=== PATIENT | female | born 1960 | race Caucasian/White ===

== ENCOUNTER 2022-08-17 07:03 | Emergency (ER) | payer BC ==
[2022-08-17] MEDS ORDERED: KETOROLAC 15 MG/ML VIAL IVP STA (07:25)
--- NOTE | 2022-08-17 07:28 | ED Physician Documentation ---
PD HPI ABD PAIN - Stated complaint Stated Complaint: RIB/BACK PX - Chief complaint Chief Complaint: Abd Pain - History obtained from History obtained from: Patient - Additional information Additional information: 62-year-old woman who is relatively healthy, no history of abdominal surgeries or cardiac disease presents with epigastric pain radiating to the back starting last evening. She had it briefly after lunch yesterday, but then it came on again after dinner. She is unable to get comfortable and has thrown up a few times but thinks it is from the pain as opposed to nausea per se. No changes in her bowel movements. This is nothing she is ever had before. She is not short of breath. Review of Systems Constitutional: denies: Fever, Chills Cardiac: reports: Chest pain / pressure. denies: Palpitations Respiratory: denies: Dyspnea, Cough GI: reports: Abdominal Pain, Nausea. denies: Vomiting PD PAST MEDICAL HISTORY - Past Medical History Cardiovascular: None Respiratory: None Neuro: None Endocrine/Autoimmune: None Musculoskeletal: Other - Past Surgical History Past Surgical History: Yes - Present Medications Home Medications: Ambulatory Orders Medication Instructions Recorded Confirmed HYDROcod/ACETAM 5/325 [[place] 5/325] 1 - 2 tab PO Q6H PRN #15 tablet 08/17/22 - Allergies Allergies/Adverse Reactions: Allergies Allergy/AdvReac Type Severity Reaction Status Date / Time omeprazole Allergy Rash Verified 08/17/22 07:20 oxycodone [From Percocet] Allergy Itching Verified 08/17/22 07:20 hydrocodone AdvReac Unknown Verified 08/17/22 07:20 - Social History Does the pt smoke?: No Smoking Status: Never smoker Does the pt drink ETOH?: No Does the pt have substance abuse?: No - Immunizations Immunizations are current?: No Immunizations: TDAP >10years/unknown - POLST Patient has POLST: No PD ED PE NORMAL - Vitals Vital signs reviewed: Yes - General General: Alert and oriented X 3, No acute distress - HEENT HEENT: PERRL, EOMI - Neck Neck: Supple, no meningeal sign, No bony TTP - Cardiac Cardiac: RRR, No murmur - Respiratory Respiratory: No respiratory distress, Clear bilaterally - Abdomen Abdomen: Normal bowel sounds, Soft, Other (TTP epigastric / RUQ with + sam's) - Back Back: No CVA TTP, No spinal TTP - Derm Derm: Normal color, Warm and dry - Extremities Extremities: No edema, No calf tenderness / cord - Neuro Neuro: Alert and oriented X 3, Normal speech Eye Opening: Spontaneous Motor: Obeys Commands Verbal: Oriented GCS Score: 15 - Psych Psych: Normal mood, Normal affect Results - Vitals Vitals: Vital Signs - 24 hr 08/17/22 08/17/22 07:15 07:37 Temperature 36.3 C L Heart Rate 92 79 Respiratory 20 12 Rate Blood Pressure 157/100 H O2 Saturation 97 96 Oxygen O2 Source Room air - EKG (time done) 0728 Rate: Rate (enter#) (80) Rhythm: NSR [place]: Normal Intervals: Normal DC QRS: Normal Ischemia: Normal ST segments - Labs Labs: Laboratory Tests 08/17/22 08/17/22 08/17/22 07:33 07:33 07:33 WBC 11.6 H RBC 5.37 Hgb 16.4 H Hct 48.1 H MCV 89.6 MCH 30.5 MCHC 34.1 RDW 12.1 Plt Count 239 MPV 9.1 Neut # (Auto) 9.3 H Lymph # (Auto) 1.4 L Stark # (Auto) 0.8 Eos # (Auto) 0.0 Baso # (Auto) 0.0 Absolute Nucleated RBC 0.00 Nucleated RBC % 0.0 Sodium 135 Potassium 4.1 Chloride 99 L Carbon Dioxide 25 Anion Gap 11.0 BUN 13 Creatinine 0.7 Estimated GFR (MDRD) 85 L Glucose 224 H Calcium 9.4 Total Bilirubin 1.1 H AST 26 ALT 27 Alkaline Phosphatase 108 Troponin I High Sens 5.4 Total Protein 7.7 Albumin 4.3 Globulin 3.4 Albumin/Globulin Ratio 1.3 Lipase 31 PD Medical Decision Making - ED course Reviewed Lab Results: CBC reviewed and notable for mild leukocytosis with white count of 11.6, also elevated hemoglobin at 16.4 without prior values to compare it with, question hemoconcentration. CMP reviewed and notable for minimal elevation in bilirubin at 1.1 without other evidence of hepatic inflammation or cholestasis. Blood glucose 224, also no priors for comparison.. Troponin reviewed and normal. Given that, the atypical nature of the pain, and the time course with pain of about 12 hours duration at that juncture I believe this rules out ACS. ED course: 62-year-old woman with epigastric pain radiating to the back with tenderness in the epigastrium and right upper quadrant. Most likely diagnosis would be biliary colic/cholecystitis. Differential includes ACS, AAA, pneumothorax, other intra-abdominal emergencies, Pancreatitis, Gastritis/ulcer disease. Will work-up initially with EKG and cardiac enzymes, also right upper quadrant ultrasound, will broaden work-up if no clear diagnosis is identified. Ultrasound is a bit limited related to body habitus, but I viewed images independently and discussed it with the ticket taker ferryboat. She does have gallstones, but no biliary ductal dilation, and no evidence of cholecystitis such as wall thickening or pericholecystic fluid. After the administration of 15 mg of IV Toradol her pain was much better and she was nontender on repeat evaluations around 8:25 AM prior to discharge. Discussed likely diagnosis of biliary colic without cholecystitis and need for follow-up with surgery as well as dietary limitations in the interim to prevent flares. She was hesitant to take narcotic analgesia but was wanting a prescription just in case which was prescribed at the pharmacy. Departure - Departure Disposition: 01 Home, Self Care Clinical Impression: Biliary colic Condition: Good Record reviewed to determine appropriate education?: Yes Instructions: ED Gallstone W Biliary Colic Follow-Up: Surgical Care [Provider Group] Prescriptions: HYDROcod/ACETAM 5/325 [[place] 5/325] 1 - 2 tab PO Q6H PRN #15 tablet PRN Reason: Pain Comments: I sent the prescription electronically to the [facility] pharmacy here in [place]. As discussed, you need to follow-up with surgeon, call the office tomorrow for next available appointment. In the interim maintain a very light diet with limitations in both fat and protein. Minimize meats, cheese, cream and butter. Whole grains, fruits and vegetables are fine. Return for new or worsening symptoms or if pain is uncontrolled, or if you run a fever or become jaundiced (yellow eyes or skin). I am prescribing a short course of narcotic pain medication for you. These are potentially dangerous and addictive medications that should be used carefully. These medications may constipate you. Take an [id number]-[id number] stool softener (docusate) twice daily with plenty of water while taking these medications. If you go 24 hours without a bowel movement, take wxkt-tsy-eomtuaa miralax, per package instructions. Do not drink or drive while taking these medications. If you received narcotic or sedating medications while in the emergency department, do not drive for 24 hours. Store this medication in a safe, secure place and out of reach of children. It is a violation of federal law to give or sell this medication to another person or to use in a manner other than prescribed. The ED will not refill narcotic prescriptions, including prescriptions lost or stolen. To dispose of unwanted medications: 1. [facility] at [address] in [place] has a medication drop box. They accept prescription medications (in p ill form) Wednesday through Wednesday 9:00 a.m. to 5:00 p.m. 2. The [facility] [employer] accepts prescription medications (in pill form only) for disposal year round. Call for more information. 3. Contact the [facility] for the next [facility] sponsored prescription drug collection event. , [phone], or [phone]; Note that many narcotic pain relievers also contain Tylenol/acetaminophen. Please ensure that your total dose of acetaminophen from all sources does not exceed 3 g (3000 mg) per day.
[2022-08-17 07:42] LABS: BASOPHILS % (AUTO) 0.3 %; EOSINOPHILS % (AUTO) 0.2 %; HCT - HEMATOCRIT 48.1 % (37.0-47.0); HGB - HEMOGLOBIN 16.4 g/dL (12.0-16.0); LYMPHOCYTES # (AUTO) 1.4 10^3/uL (1.5-3.5); LYMPHOCYTES % (AUTO) 11.7 %; MEAN CORPUSCULAR HEMOGLOBIN 30.5 pg (27.0-31.0); MEAN CORPUSCULAR HGB CONC 34.1 g/dL (32.0-36.0); MEAN CORPUSCULAR VOLUME 89.6 fL (81.0-99.0); MEAN PLATELET VOLUME 9.1 fL (7.9-10.8); MONOCYTES # (AUTO) 0.8 10^3/uL (0.0-1.0); MONOCYTES % (AUTO) 6.9 %; NEUTROPHILS # (AUTO) 9.3 10^3/uL (1.5-6.6); NEUTROPHILS % (AUTO) 80.6 %; PLT - PLATELET COUNT 239 10^3/uL (130-450); RED BLOOD COUNT 5.37 10^6/uL (4.20-5.40); RED CELL DISTRIBUTION WIDTH 12.1 % (12.0-15.0); WHITE BLOOD COUNT 11.6 x10^3/uL (4.8-10.8)
[2022-08-17 07:58] LABS: ALBUMIN 4.3 g/dL (3.2-5.5); ALBUMIN/GLOBULIN RATIO 1.3 (1.0-2.2); BILIRUBIN,TOTAL 1.1 mg/dL (0.2-1.0); CALCIUM 9.4 mg/dL (8.5-10.3); CREATININE 0.7 mg/dL (0.4-1.0); POTASSIUM 4.1 mmol/L (3.5-5.0); TOTAL PROTEIN 7.7 g/dL (6.7-8.2)
[2022-08-17 08:48] VITALS: BP 151/83
--- NOTE | 2022-08-17 08:49 | XRAY Report ---
PROCEDURE: Chest 1 View X-Ray INDICATIONS: Chest Pain TECHNIQUE: One view of the chest was acquired. COMPARISON: None. FINDINGS: Surgical changes and devices: None. Lungs and pleura: No pleural effusions or pneumothorax. Lungs are clear. Mediastinum: Mediastinal contours appear normal. Heart size is normal. Bones and chest wall: No suspicious bony lesions. Overlying soft tissues appear unremarkable. IMPRESSION: No acute cardiopulmonary disease. Reviewed by: Alysha Preciado MD on 08/17/2022 8:47 AM [facility] Approved by: Alysha Preciado MD on 08/17/2022 8:47 AM [facility] Station ID: [id number]
--- NOTE | 2022-08-17 08:55 | Ultrasound Report ---
PROCEDURE: Abdomen Limited INDICATIONS: Epigastric/right upper quadrant pain TECHNIQUE: Real-time focused scanning was performed of the abdomen, with image documentation. COMPARISON: None. FINDINGS: Liver: Liver is normal in size and demonstrates diffusely increased echotexture. Gallbladder: Mildly distended. There are small gallstones and coronary sinus. The gallbladder wall th ickness is normal. No pericholecystic fluid collection or no sonographic Pearce sign. Biliary ducts: Intrahepatic bile ducts are non-dilated. Extrahepatic bile duct caliber measures 5.4 mm. Normal is 6-7 mm or less in diameter, or 10 mm or less post-cholecystectomy. Pancreas: Visualized portions of the pancreas are sonographically normal. Right Kidney: Right kidney measures 11.5 cm long. No hydronephrosis or nephrolithiasis. No solid m asses. Miscellaneous: No free abdominal fluid. IMPRESSION: 1. Cholelithiasis. No ultrasound findings to suggest acute cholecystitis. 2. Diffusely increased hepatic echotexture consistent with fatty infiltration. Other hepatocellular d isease could have a similar ultrasound appearance. Please correlate results LFTs. Reviewed by: Alysha Preciado MD on 08/17/2022 8:54 AM PST Approved by: Alysha Preciado MD on 08/17/2022 8:54 AM PST Station ID: [id number]
== END 2022-08-17 08:47 | disposition home or self-care (01) ==
LOC: ED 07:03
DX: K80.50 Calculus of bile duct without cholangitis or cholecystitis without obstruction (principal)
CPT/HCPCS: 36415; 80053; 83690; 84484; 85025; 93005; 96374; 99284

== ENCOUNTER 2022-09-07 10:23 | Day surgery (SDC) | payer BC ==
[~2022-09-07 10:23] MED LIST: ACETAMINOPHEN 500 MG TABLET PO ONE; CELECOXIB 100 MG CAPSULE PO ONE; metroNIDAZOLE 500 MG/100 ML 500 MG/100 ML BAG ONE
[2022-09-07] MEDS ORDERED: LACTATED RINGERS 1,000 ML IV ONE (10:35)
[2022-09-07] MEDS ORDERED: PROPOFOL 200 MG/20 ML VIAL IVP ONE (10:55)
[2022-09-07] MEDS ORDERED: fentaNYL 100 MCG/2 ML VIAL ONE ×2 (10:56→15:19)
[2022-09-07] MEDS ORDERED: ONDANSETRON 4 MG/2 ML VIAL ONE (10:56)
[2022-09-07] MEDS ORDERED: DEXAMETHASONE 4 MG/ML VIAL ONE (10:56)
[2022-09-07] MEDS ORDERED: MIDAZOLAM 2 MG/2 ML VIAL ONE (10:56)
[2022-09-07] MEDS ORDERED: ROCURONIUM 50 MG/5 ML VIAL ONE ×2 (10:56→12:54)
[2022-09-07] MEDS ORDERED: BUPIVACAINE 0.5% PF 30 ML VIAL ONE (11:00)
[2022-09-07] MEDS ORDERED: LIDOCAINE MPF 2%-EPI 1:200000 20 ML VIAL ONE (11:00)
[2022-09-07] MEDS ORDERED: iohexoL-240 10 ML VIAL IVP ONE ×2 (11:04→11:07)
--- NOTE | 2022-09-07 11:11 | ANESTHESIA ---
Pre-Anesthesia VS, & Labs - Diagnosis cholilithiasis - Procedure lap kayce with cholangiogram Vital Signs: Temp Pulse Resp BP Pulse Ox O2 Flow Rate 36.1 C L 65 16 127/71 96 0 09/07/22 10:35 09/07/22 10:35 09/07/22 10:35 09/07/22 10:35 09/07/22 10:35 09/07/22 10:35 Height: 5 ft 4 in Weight (kg): 116.6 kg Body Mass Index: 44.1 BMI Classification: Morbidly Obese - NPO >8 hours - Is Patient ?: No Home Medications and Allergies Home Medications: Ambulatory Orders Acetaminophen [Tylenol] 650 mg PO Q6H PRN 08/28/22 Cimetidine [Acid Sleeve Setter Safety Stitch] 200 mg PO DAILY 08/28/22 Famotidine [Pepcid AC] 10 mg PO DAILY PRN 08/28/22 Ibuprofen [Motrin] 600 mg PO Q6H PRN 08/28/22 Acetaminophen [Tylenol] 650 mg PO Q6H PRN 08/28/22 Cimetidine [Acid Sleeve Setter Safety Stitch] 200 mg PO DAILY 08/28/22 Famotidine [Pepcid AC] 10 mg PO DAILY PRN 08/28/22 Ibuprofen [Motrin] 600 mg PO Q6H PRN 08/28/22 Allergies/Adverse Reactions: Allergies Allergy/AdvReac Type Severity Reaction Status Date / Time omeprazole Allergy Rash Verified 09/07/22 08:34 oxycodone [From Percocet] Allergy Rash Verified 09/07/22 08:34 hydrocodone AdvReac Nausea Verified 09/07/22 08:34 Anes History & Medical History - Anesthetic History Anesthesia Complications: reports: No previous complications - Medical History Cardiovascular: reports: None Pulmonary: reports: None Gastrointestinal: reports: GERD, Cholelithiasis Urinary: reports: None Neuro: reports: None Musculoskeletal: reports: Osteoarthritis Endocrine/Autoimmune: reports: None Skin: reports: None Smoking Status: Never smoker History of Cancer?: No - Surgical History Orthopedic: reports: Hip replacement, Knee replacement, Carpal Tunnel surgery, Other Exam General: Alert, Oriented x3 Dental: WNL Mouth Opening: Greater than 4 Fingerbreadths Neck Mobility: Normal Mallampati classification: II Thyromental Distance: greater than 6 cm Respiratory: Lungs clear Cardiovascular: Regular rate, Normal S1, Normal S2 Plan Anesthesia Type: General Consent for Procedure(s) Verified and Reviewed: Yes Code Status: Attempt Resuscitation ASA classification: 2-Mild systemic disease Is this case an emergency?: No
[2022-09-07] MEDS ORDERED: ATROPINE ABBOJECT 1 MG/10 ML SYRINGE IVP PRN (11:14)
[2022-09-07] MEDS ORDERED: NALOXONE 0.4 MG/ML VIAL IVP PRN (11:14)
[2022-09-07] MEDS ORDERED: METOCLOPRAMIDE 10 MG/2 ML VIAL IVP PRN (11:14)
[2022-09-07] MEDS ORDERED: ePHEDrine 50 MG/ML VIAL IVP PRN (11:14)
[2022-09-07] MEDS ORDERED: fentaNYL 100 MCG/2 ML VIAL IVP PRN (11:14)
[2022-09-07] MEDS ORDERED: ONDANSETRON 4 MG/2 ML VIAL IVP PRN ×2 (11:14→14:34)
--- NOTE | 2022-09-07 11:14 | ANESTHESIA ---
Pre-Anesthesia VS, & Labs - Diagnosis symptomatic cholelithiasis - Procedure lap kayce with cholangiogram Vital Signs: Temp Pulse Resp BP Pulse Ox O2 Flow Rate 36.1 C L 65 16 127/71 96 0 09/07/22 10:35 09/07/22 10:35 09/07/22 10:35 09/07/22 10:35 09/07/22 10:35 09/07/22 10:35 Height: 55 ft 4 in Weight (kg): 116.6 kg Body Mass Index: 0.4 BMI Classification: Underweight - NPO >8 hours - Is Patient ?: No Home Medications and Allergies Home Medications: Ambulatory Orders Acetaminophen [Tylenol] 650 mg PO Q6H PRN 08/28/22 Cimetidine [Acid Wildlife Conservationist] 200 mg PO DAILY 08/28/22 Famotidine [Pepcid AC] 10 mg PO DAILY PRN 08/28/22 Ibuprofen [Motrin] 600 mg PO Q6H PRN 08/28/22 Acetaminophen [Tylenol] 650 mg PO Q6H PRN 08/28/22 Cimetidine [Acid Wildlife Conservationist] 200 mg PO DAILY 08/28/22 Famotidine [Pepcid AC] 10 mg PO DAILY PRN 08/28/22 Ibuprofen [Motrin] 600 mg PO Q6H PRN 08/28/22 Allergies/Adverse Reactions: Allergies Allergy/AdvReac Type Severity Reaction Status Date / Time omeprazole Allergy Rash Verified 09/07/22 08:34 oxycodone [From Percocet] Allergy Rash Verified 09/07/22 08:34 hydrocodone AdvReac Nausea Verified 09/07/22 08:34 Anes History & Medical History - Medical History Cardiovascular: reports: None Pulmonary: reports: None Gastrointestinal: reports: GERD, Cholelithiasis Urinary: reports: None Neuro: reports: None Musculoskeletal: reports: Osteoarthritis Endocrine/Autoimmune: reports: None Skin: reports: None Smoking Status: Never smoker - Surgical History Orthopedic: reports: Hip replacement, Knee replacement, Carpal Tunnel surgery, Other
[2022-09-07] MEDS ORDERED: LACTATED RINGERS 1,000 ML IV SCH (12:00)
[2022-09-07] MEDS ORDERED: SEVOFLURANE 250 ML LIQUID INH ONE (12:46)
[2022-09-07] MEDS ORDERED: LIDOCAINE MPF 2%-EPI 1:200000 20 ML VIAL SUBQ ONE (12:48)
[2022-09-07] MEDS ORDERED: BUPIVACAINE 0.5% PF 30 ML VIAL SUBQ ONE (12:49)
[2022-09-07] MEDS ORDERED: SODIUM CHLORIDE 0.9% 100 ML BAG IV ONE (12:54)
[2022-09-07] MEDS ORDERED: KETOROLAC 30 MG/ML VIAL ONE (13:40)
[2022-09-07] MEDS ORDERED: SUGAMMADEX 200 MG/2 ML VIAL IVP ONE (13:40)
[2022-09-07] MEDS ORDERED: HYDROmorphone 0.5 MG/0.5 ML SYRINGE IVP PRN (14:34)
[2022-09-07] MEDS ORDERED: ACETAMINOPHEN 325 MG TABLET PO PRN (14:34)
[2022-09-07] MEDS ORDERED: IBUPROFEN 600 MG TABLET PO PRN (14:34)
[2022-09-07] MEDS ORDERED: oxyCODONE 5 MG TABLET PO PRN (14:34)
--- NOTE | 2022-09-07 14:41 | OPERATIVE REPORT ---
Operative Report - General Procedure Date: 09/07/22 Planned Procedure: Laparoscopic cholecystectomy with intraoperative cholangiogram Pre-Op Diagnosis: chronic cholecystitis, Symptomatic cholelithiasis, morbid obesity Procedure Performed: Laparoscopic cholecystectomy with intraoperative cholangiogram Post Op Diagnosis: chronic cholecystitis, cholelithiasis, gallbladder hydrops, obesity - Procedure Note Primary Surgeon: Dr. Carito Roth Anesthesia Provider: Fifi Carolina CRNA Anesthesia Technique: General ET tube, Local Pathology: Gallbladder and contents Estimated Blood Loss (mL): 20 Indications: The patient has been struggling with intermittent right upper quadrant pain for some time. Her pain is made worse with fatty meals. She was seen and evaluated in the clinic. We discussed the results of her ultrasound which includes mildly thickened gallbladder wall and gallstones. These findings are consistent with chronic cholecystitis. We discussed the risks, benefits, and alternatives of laparoscopic cholecystectomy with intraoperative cholangiogram. These risks include but are not limited to bleeding, infection, damage to surrounding structures, and the need for further surgeries or procedures. The patient voiced understanding, her questions were answered, and she wished to proceed. A consent was signed by the patient in clinic. Findings: 1. Chronic cholecystitis 2. Gallstones 3. Hydrops 4. Normal cholangiogram Complications: None - Other Other Information/Narrative: The patient was brought to the operative suite and placed in the supine position. General endotracheal anesthesia was induced. Preoperative antibiotics were given. ERAS protocol was followed. A preop surgical timeout was performed. Local anesthetic was injected into the skin and subcutaneous tissues just superior to the umbilicus. An 11 blade scalpel was used to make a 5 mm transverse skin incision in this location. Next, a hemostat was used to spread the tissues down to the level of the fascia and a Richardson clamp was used to grasp and elevate the umbilical stalk. A Varess needle was used to gain access to the peritoneal space. Low flow insufflation revealed low pressures and then high flow insufflation was undertaken to 17 mmHg. Next, the Varess needle was removed and a 5 mm laparoscopic port was inserted in this location. Through this port, a 5 mm 30 degree laparoscope was inserted. On inspection of the abdomen no injury was caused on entry. Next, the patient was placed in reverse Trendelenburg and rotated slightly to the left. Two 5 mm ports were inserted in the right upper quadrant, one in the anterior axillary line and the other in the midclavicular line. Also, a 12 mm port was inserted in the subxiphoid region. All ports were placed by first anesthetizing the skin and subcutaneous tissues with local anesthetic, then by making an appropriate length incision with an 11 blade scalpel, and finally by placing the port under direct laparoscopic vision. Once the ports were in place, a ratcheted, toothed grasper was used to elevate the fundus of the gallbladder toward the patient's right shoulder. There were dense and loose adhesions in the right upper quadrant between the omentum and the gallbladder.These were taken down with blunt and sharp dissection with electrocautery. Next, the peritoneum was incised starting at the hilum of the gallbladder and working toward the fundus along the gallbladder liver interface on the medial and lateral aspects of the gallbladder. Next, attention was returned to the hilum of the gallbladder. The alveolar tissues in this region were taken down with blunt and sharp dissection with electrocautery taking great care not to cauterize though any tissue I could not easily see through. Two ductal structures were isolated and skeletonized such that each ductal structure could be visualized with liver present on either side. This process was more difficult than normal due to woody inflammation in the area, likely secondary to the chronic nature of the inflammation. The cystic plate was also developed. At this time, it was felt that a critical view of safety had been obtained. Next, a clip was placed distally, that is toward the gallbladder, on the cystic duct and just proximal to this a ductotomy was performed. A cholangiogram catheter was placed within the duct and it was flushed with saline. There was no leakage and it flushed easily. Clips were also placed proximally and distally on the cystic artery. Full strength contrast dye was then placed on the cholangiogram catheter and a cholangiogram was performed. The cholangiogram appeared normal. There was good filling of the right and left hepatic system as well as the duodenum and common bile duct. There were no filling defects. Next the cholangiogram catheter was removed. Two clips were placed proximally on the cystic duct. The cystic duct and cystic artery were divided using laparoscopic scissors between the clips. Next the gallbladder was dissected off of the liver bed. This process was also more difficult as the gallbladder was partially intrahepatic. Once it was completely freed, the gallbladder was placed in an Endo Catch bag and removed through the epigastric port. The epigastric port was replaced and suction and irrigation were used to remove any fluid from the right upper quadrant. This was done until the fluid returned was clear. Several stones spilled during the process of removing the gallbladder, these were removed with stone forceps. Next, a laparoscopic fascial closure device was used to place a single interrupted 0 Vicryl suture at the epigastric port. This reapproximated the fascia well. The remaining ports were removed under direct laparoscopic vision and the abdomen was deflated. Next, the skin edges were reapproximated with 4-0 Monocryl in an interrupted subcuticular fashion. A sterile dressing of skin glue was placed. The patient tolerated the procedure well. The patient was extubated in the operating room and transferred to the recovery room in stable condition. There were no complications.
[2022-09-07] MEDS ORDERED: LACTATED RINGERS 950 ML IV ONE (14:51)
[2022-09-07] MEDS ORDERED: traMADol 50 MG TABLET PO PRN (15:37)
[2022-09-07 16:02] VITALS: BP 114/66
--- NOTE | 2022-09-07 16:02 | ANESTHESIA POST OP EVALUATION ---
Anesthesia Post Eval - Post Anesthesia Eval Vitals: Last Vital Signs Temp 36.3 C L 09/07/22 16:01 Pulse 86 09/07/22 16:01 Resp 14 09/07/22 16:01 BP 114/66 09/07/22 16:01 Pulse Ox 92 09/07/22 16:01 O2 Flow Rate 0 09/07/22 10:35 CV Function Including HR & BP: Stable Pain Control: Satisfactory Nausea & Vomiting: Negative Mental Status: Baseline Respiratory Status: Airway Patent Hydration Status: Satisfactory Anesthesia Complications: None
--- NOTE | 2022-09-07 16:24 | XRAY Report ---
PROCEDURE: OR Cholangiogram INDICATIONS: IOC TECHNIQUE: Intraoperative cholangiogram was performed. COMPARISON: None. FINDINGS: Intraoperative cholangiogram demonstrates opacification of the biliary system without gross dilation. At the distal most common bile duct at the inferior margin of the [id number] there is a questiona ble appearance of filling defect identified. IMPRESSION: Questionable filling defect versus artifact at the distal common bile duct. Recommend correlation to real-time operative report. Reviewed by: Maryann Morales MD on 09/07/2022 4:22 PM [facility] Approved by: Maryann Morales MD on 09/07/2022 4:22 PM [facility] Station ID: [id number]
== END 2022-09-07 10:24 | disposition home or self-care (01) ==
LOC: SDS 10:23
PROVIDERS: ATTEND Surgery
PROC: 0FT44ZZ Resection of Gallbladder, Percutaneous Endoscopic Approach (ICD-10-PCS; principal; 2022-09-07 12:00)
DX: K80.10 Calculus of gallbladder with chronic cholecystitis without obstruction (principal); E66.01 Morbid (severe) obesity due to excess calories; Z68.41 Body mass index [BMI] 40.0-44.9, adult; K82.1 Hydrops of gallbladder
CPT/HCPCS: 47563; 74300; A9270; C1758; J3490; J7040; J7120; Q9966

== ENCOUNTER 2022-12-18 10:28 | Outpatient (CLI) | payer BC ==
[2022-12-18 10:40] LABS: BASOPHILS # (AUTO) 0.1 10^3/uL (0.0-0.1); BASOPHILS % (AUTO) 0.8 %; EOSINOPHILS # (AUTO) 0.2 10^3/uL (0.0-0.7); EOSINOPHILS % (AUTO) 2.7 %; HCT - HEMATOCRIT 50.2 % (37.0-47.0); HGB - HEMOGLOBIN 16.4 g/dL (12.0-16.0); LYMPHOCYTES # (AUTO) 3.4 10^3/uL (1.5-3.5); LYMPHOCYTES % (AUTO) 45.5 %; MEAN CORPUSCULAR HEMOGLOBIN 30.4 pg (27.0-31.0); MEAN CORPUSCULAR HGB CONC 32.7 g/dL (32.0-36.0); MEAN PLATELET VOLUME 9.7 fL (7.9-10.8); MONOCYTES # (AUTO) 0.7 10^3/uL (0.0-1.0); MONOCYTES % (AUTO) 9.2 %; NEUTROPHILS # (AUTO) 3.1 10^3/uL (1.5-6.6); NEUTROPHILS % (AUTO) 41.5 %; PLT - PLATELET COUNT 206 10^3/uL (130-450); RED CELL DISTRIBUTION WIDTH 12.6 % (12.0-15.0); WHITE BLOOD COUNT 7.4 x10^3/uL (4.8-10.8)
[2022-12-18 11:00] LABS: ALBUMIN 4.2 g/dL (3.2-5.5); ALBUMIN/GLOBULIN RATIO 1.2 (1.0-2.2); ALKALINE PHOSPHATASE 92 IU/L (42-121); ALT ALANINE AMINOTRANSFERASE 25 IU/L (10-60); AST ASPARTATE AMINOTRANSFERASE 27 IU/L (10-42); BILIRUBIN,TOTAL 0.7 mg/dL (0.2-1.0); BUN - BLOOD UREA NITROGEN 15 mg/dL (6-20); CALCIUM 9.4 mg/dL (8.5-10.3); CARBON DIOXIDE - CO2 24 mmol/L (21-32); CHLORIDE 107 mmol/L (101-111); CHOL/HDL RATIO 5.5 (<4.4); CHOLESTEROL 238 mg/dL; CREATININE 0.7 mg/dL (0.4-1.0); GFR - MDRD 85 (>89); GLUCOSE 117 mg/dL (70-100); HDL CHOLESTEROL 43 mg/dL; LDL CHOLESTEROL,CALCULATED 136 mg/dL; LDL/HDL RATIO 3.2 (<4.4); POTASSIUM 4.2 mmol/L (3.5-5.0); SODIUM 141 mmol/L (135-145); TOTAL PROTEIN 7.8 g/dL (6.7-8.2); TRIGLYCERIDES 293 mg/dL; VLDL CHOLESTEROL 59 mg/dL
== END 2022-12-18 10:29 | disposition home or self-care (01) ==
LOC: LAB 10:28
PROVIDERS: ATTEND Physician Assistant
DX: Z00.00 Encounter for general adult medical examination without abnormal findings (principal); Z13.220 Encounter for screening for lipoid disorders
CPT/HCPCS: 36415; 80053; 80061; 83721; 85025

== ENCOUNTER 2023-11-18 13:02 | Outpatient (CLI) | payer BC ==
--- NOTE | 2023-11-19 11:33 | Mammography Report ---
BILATERAL DIGITAL SCREENING MAMMOGRAM 3D/2D: 11/18/2023 CLINICAL: Routine screening. Comparison is made to exams dated: 06/11/2016 mammogram and 06/29/2015 mammogram - [facility] . There are scattered areas of fibroglandular density in both breasts (category b / 25%-50% glandular t issue). No significant masses, calcifications, or other findings are seen in either breast. There has been no significant interval change. IMPRESSION: NEGATIVE There is no mammographic evidence of malignancy. A 1 year screening mammogram is recommended. Based on the Tyrer Cuzick model (a risk assessment model) the patient's lifetime risk is 7.4% and her 10 year risk is 3.3%. According to the ACR, ACS, and NCCN guidelines, an annual breast MRI exam hugo g with mammogram is recommended if the patient's lifetime risk is 20% or greater. This exam was interpreted at Station ID: [id number]. NOTE: For mammograms, a report in lay terms will be sent to the patient. Approximately 15% of breast malignancies will not be visualized mammographically. In the management of a palpable breast mass, a negative mammogram must not discourage biopsy of a clinically suspicious lesion. Electronically Signed By: Hernandez harp/keyanna:11/18/2023 14:11:15 letter sent: No_Letter ACR BI-RADS Category 1: Negative 3341F PARENCHYMAL PATTERN: (A) - The breast(s) demonstrate(s) scattered fibroglandular densities. BI-RADS CATEGORY: (1) - 1 RECOMMENDATION: (ANNUAL) - Recommend routine annual screening mammography. [id number] 1 year screening LATERALITY: (B)
== END 2023-11-18 13:03 | disposition home or self-care (01) ==
LOC: DI 13:02
DX: Z12.31 Encounter for screening mammogram for malignant neoplasm of breast (principal); R92.323 Mammographic fibroglandular density, bilateral breasts

== ENCOUNTER 2023-12-21 07:59 | Day surgery (SDC) | payer BC ==
[2023-12-21] MEDS: LACTATED RINGERS 1,000 ML IV ONE (08:01)
[2023-12-21] MEDS ORDERED: LIDOCAINE-MPF 2% 5 ML VIAL ONE (09:15)
[2023-12-21] MEDS ORDERED: PROPOFOL 500 MG/50 ML 500 MG/50 ML VIAL ONE (09:15)
[2023-12-21] MEDS ORDERED: MIDAZOLAM 2 MG/2 ML VIAL ONE (09:15)
--- NOTE | 2023-12-21 09:20 | ANESTHESIA ---
Pre-Anesthesia VS, & Labs - Diagnosis screening - Procedure colonoscopy Vital Signs: Temp Pulse Resp BP Pulse Ox O2 Flow Rate 36.0 C L 77 16 138/77 H 97 0 12/21/23 08:15 12/21/23 08:15 12/21/23 08:15 12/21/23 08:15 12/21/23 08:15 12/21/23 08:15 Height: 5 ft 4 in Weight (kg): 118 kg Body Mass Index: 44.6 BMI Classification: Morbidly Obese - NPO >8 hours - Is Patient ?: No Home Medications and Allergies Acetaminophen [Tylenol] 650 mg PO Q6H PRN 08/28/22 Famotidine [Pepcid AC] 10 mg PO DAILY PRN 08/28/22 Ibuprofen [Motrin] 600 mg PO Q6H PRN 08/28/22 Allergies/Adverse Reactions: Allergies Allergy/AdvReac Type Severity Reaction Status Date / Time omeprazole Allergy Rash Verified 12/20/23 12:43 oxycodone [From Percocet] Allergy Rash Verified 12/20/23 12:43 hydrocodone AdvReac Nausea Verified 12/20/23 12:43 Anes History & Medical History - Anesthetic History Anesthesia Complications: reports: No previous complications Family history of Anesthesia Complications: Denies Family history of Malignant Hyperthermia: Denies - Medical History Cardiovascular: reports: None Pulmonary: reports: None Gastrointestinal: reports: GERD Urinary: reports: Frequency Neuro: reports: None Musculoskeletal: reports: None Endocrine/Autoimmune: reports: None, Other (trunchal obesity) Skin: reports: None Smoking Status: Never smoker - Surgical History General: reports: Cholecystectomy Orthopedic: reports: Hip replacement, Knee replacement, Carpal Tunnel surgery Exam General: Alert, Oriented x3, Cooperative Dental: WNL Mouth Openin Fingerbreadth Neck Mobility: Normal Mallampati classification: III Thyromental Distance: less than 4 cm Respiratory: Lungs clear Cardiovascular: Regular rate Plan Anesthesia Type: General, Total IV Consent for Procedure(s) Verified and Reviewed: Yes Code Status: Attempt Resuscitation ASA classification: 3-Severe systemic disease Is this case an emergency?: No
[2023-12-21] MEDS: LACTATED RINGERS 600 ML IV ONE (10:04)
[2023-12-21 10:28] VITALS: BP 110/73; O2SAT 98
--- NOTE | 2023-12-21 15:21 | ANESTHESIA POST OP EVALUATION ---
Anesthesia Post Eval - Post Anesthesia Eval Vitals: Last Vital Signs Temp 36.2 C L 12/21/23 10:21 Pulse 71 12/21/23 10:21 Resp 15 12/21/23 10:21 BP 110/73 12/21/23 10:21 Pulse Ox 98 12/21/23 10:21 O2 Flow Rate 0 12/21/23 08:15 CV Function Including HR & BP: Stable Pain Control: Satisfactory Nausea & Vomiting: Negative Mental Status: Baseline Respiratory Status: Airway Patent Hydration Status: Satisfactory Anesthesia Complications: None
== END 2023-12-21 08:00 | disposition home or self-care (01) ==
LOC: SDS 07:59
PROVIDERS: ATTEND Surgery
PROC: 0DBH8ZZ Excision of Cecum, Via Natural or Artificial Opening Endoscopic (ICD-10-PCS; 2023-12-21)
PROC: 0DBK8ZZ Excision of Ascending Colon, Via Natural or Artificial Opening Endoscopic (ICD-10-PCS; principal; 2023-12-21 09:30)
DX: Z12.11 Encounter for screening for malignant neoplasm of colon (principal); D12.0 Benign neoplasm of cecum; D12.2 Benign neoplasm of ascending colon; K57.30 Diverticulosis of large intestine without perforation or abscess without bleeding; E66.01 Morbid (severe) obesity due to excess calories; Z68.41 Body mass index [BMI] 40.0-44.9, adult
CPT/HCPCS: 45380; 45385; J7120

== ENCOUNTER 2024-01-18 07:58 | Outpatient (CLI) | payer BC ==
[2024-01-18 08:13] LABS: BASOPHILS # (AUTO) 0.1 10^3/uL (0.0-0.1); BASOPHILS % (AUTO) 0.9 %; EOSINOPHILS # (AUTO) 0.3 10^3/uL (0.0-0.7); EOSINOPHILS % (AUTO) 4.4 %; HCT - HEMATOCRIT 47.7 % (37.0-47.0); HGB - HEMOGLOBIN 15.8 g/dL (12.0-16.0); LYMPHOCYTES # (AUTO) 1.9 10^3/uL (1.5-3.5); LYMPHOCYTES % (AUTO) 34.2 %; MEAN CORPUSCULAR HEMOGLOBIN 30.3 pg (27.0-31.0); MEAN CORPUSCULAR HGB CONC 33.1 g/dL (32.0-36.0); MEAN CORPUSCULAR VOLUME 91.6 fL (81.0-99.0); MONOCYTES # (AUTO) 0.5 10^3/uL (0.0-1.0); MONOCYTES % (AUTO) 9.4 %; NEUTROPHILS # (AUTO) 2.9 10^3/uL (1.5-6.6); NEUTROPHILS % (AUTO) 50.9 %; PLT - PLATELET COUNT 219 10^3/uL (130-450); RED BLOOD COUNT 5.21 10^6/uL (4.20-5.40); RED CELL DISTRIBUTION WIDTH 12.4 % (12.0-15.0); WHITE BLOOD COUNT 5.7 x10^3/uL (4.8-10.8)
[2024-01-18 08:29] LABS: ALBUMIN 4.4 g/dL (3.2-5.5); ALBUMIN/GLOBULIN RATIO 1.6 (1.0-2.2); ALKALINE PHOSPHATASE 98 IU/L (42-121); ALT ALANINE AMINOTRANSFERASE 19 IU/L (10-60); AST ASPARTATE AMINOTRANSFERASE 18 IU/L (10-42); BILIRUBIN,TOTAL 0.6 mg/dL (0.2-1.0); BUN - BLOOD UREA NITROGEN 17 mg/dL (6-20); CALCIUM 9.8 mg/dL (8.5-10.3); CARBON DIOXIDE - CO2 31 mmol/L (21-32); CHLORIDE 103 mmol/L (101-111); CHOL/HDL RATIO 5.7 (<4.4); CHOLESTEROL 221 mg/dL; CREATININE 0.8 mg/dL (0.6-1.3); GFR - MDRD 72 (>89); GLUCOSE 146 mg/dL (74-104); HDL CHOLESTEROL 39 mg/dL; LDL CHOLESTEROL,CALCULATED 116 mg/dL; POTASSIUM 4.7 mmol/L (3.5-4.5); SODIUM 139 mmol/L (135-145); TOTAL PROTEIN 7.1 g/dL (6.4-8.9); TRIGLYCERIDES 331 mg/dL (48-352); VLDL CHOLESTEROL 66 mg/dL
[2024-01-18 08:43] LABS: THYROID STIMULATING HORMONE 2.39 uIU/mL (0.34-5.60)
[2024-01-18 10:28] LABS: ESTIMATED AVERAGE GLUCOSE 134 mg/dL (70-100); HEMOGLOBIN A1c% 6.3 % (4.27-6.07)
== END 2024-01-18 07:59 | disposition home or self-care (01) ==
LOC: LAB 07:58
PROVIDERS: ATTEND Physician Assistant
DX: Z00.00 Encounter for general adult medical examination without abnormal findings (principal); E66.01 Morbid (severe) obesity due to excess calories; Z13.220 Encounter for screening for lipoid disorders; R73.01 Impaired fasting glucose
CPT/HCPCS: 36415; 80053; 80061; 83036; 83721; 84443; 85025